=== PATIENT | male | born 1975 | race Hispanic/Latino ===

== ENCOUNTER 2016-03-16 13:56 | Emergency (ER) ==
--- NOTE | 2016-03-16 15:37 | Diag Imaging Result Document ---
PROCEDURE NAME: CHEST-2 VIEWS - 03/16/2016 CHEST, TWO VIEWS: INDICATION: Cough. COMPARISON: No comparison studies. FINDINGS: There is cardiomegaly. The pulmonary vasculature is not congested. No infiltrate, effusion, or pneumothorax is identified. IMPRESSION: Cardiomegaly.
[2016-03-16 15:53] LABS: MANUAL DIFF NEEDED? NO
[2016-03-16 15:56] LABS: BASO% 0.5 % (0.0-0.8); EOS# 0.12 X1000 (0.0-0.7); EOS% 1.9 % (0.0-10.0); HEMATOCRIT 46.6 % (42.0-52.0); HEMOGLOBIN 16.6 g/dL (14.0-18.0); IMM GRAN# 0.01 X1000 (0.0-0.04); IMM GRAN% 0.2 % (0.0-0.5); LYMPH# 2.16 X1000 (1.2-3.4); LYMPH% 34.3 % (20.5-51.1); MCH 30.9 PG (27-31); MCHC 35.6 g/dL (33-37); MCV 86.6 FL (81-99); MONO# 0.47 X1000 (0.11-0.59); MONO% 7.5 % (1.7-9.3); MPV 10.9 FL (7.4-10.4); NEUT% 55.6 % (42.2-75.2); PLT 227 X1000 (130-400); RBC 5.38 XMIL (4.7-6.1)
--- NOTE | 2016-03-16 15:56 | PROVIDER DOCUMENTATION ---
HPI-General Adult - General Chief Complaint: Flu Symptoms Stated Complaint: FLU LIKE SX Time Seen by Provider: 03/16/16 15:01 Source: patient Allergies/Adverse Reactions: Patient Allergies Allergy/AdvReac Type Severity Reaction Status Date / Time No Known Allergies Allergy Verified 11/12/14 03:06 - History of Present Illness -Gen Adult Nature of Presenting Problems: Pt is 40 y/o M presents to the ED with F, body aches, and cough. Pt states symptoms started 2 days ago. Pt states cough up sputum. Pt states having sick contact at work. Pt denies smoking. Location of Pain/Injury: reports: generalized Pain Radiation: reports: no radiation Quality of Pain: reports: aching Severity: reports: mild Onset/Duration: reports: 2 days ago Timing: reports: still present, intermittent Context/Activities at Onset: reports: light activity Modifying Factors: improves with: nothing Associated Symptoms: reports: cough, fever/chills (F), muscle aches, weakness. denies: anxiety, arm pain, back/neck pain, chest pain, diarrhea, headaches, loss of appetite, sinus congestion/drainage, shortness of breath, vomiting Similar Symptoms Previously?: Yes Recently seen or treated by another doctor?: No Review of Systems - Adult - REVIEW OF SYSTEMS - ADULT Constitutional: reports: fever. denies: chills Eyes: denies: blurred vision, double vision Ears, Nose, Mouth & Throat: denies: ear pain, nose pain, throat pain Cardiovascular: denies: chest pain, heart murmur, irregular heart rate Respiratory: reports: cough. denies: shortness of breath, wheezing Gastrointestinal: denies: abdominal pain, diarrhea, nausea, vomiting Genitourinary: denies: dysuria, hematuria Musculoskeletal: reports: muscle aches (generalized). denies: bone pain, joint pain, neck pain Integumentary: denies: hives, itching Neurological: denies: dizziness/vertigo, headache/migraines Psychiatric: reports: no symptoms reported Endocrine: reports: no symptoms reported Hematologic/Lymphatic: reports: no symptoms reported Allergic/Immunologic: reports: no symptoms reported All Other Systems: Reviewed and Negative Past History - Adult - PAST MEDICAL HISTORY-ADULT Review of Records: reports: Nursing Assessment Review, Medications Reviewed, Social history reviewed & non-contributory. Major Childhood Illnesses: reports: denies history Cardiovascular: reports: HTN Respiratory: reports: denies history Gastrointestinal: reports: denies history Obstetrical/Gynecological: reports: denies history Genitourinary: reports: denies history Musculoskeletal: reports: denies history Neurological: reports: denies history Endocrine/Immune: reports: denies history Other Conditions: reports: denies history - PRIOR SURGERIES/PROCEDURES Surgical/Procedure History: reports: reviewed, not pertinent - IMMUNIZATION STATUS Childhood Immunizations: See Nurse Assessment Flu Vaccine: See Nurse Assessment - FAMILY HISTORY Family History: reviewed, not pertinent - SOCIAL HISTORY Smoking: denies Substance Use: denies Alcohol Use Frequency: never Living Situation: family Physical Exam-General - PHYSICAL EXAM-ADULT Initial Vital Signs Reviewed: Yes - CONSTITUTIONAL General Appearance: appears well, alert, no apparent distress - EYES Eyes: PERRL/EOMI, pink conjunctivae - HEAD, EARS, NOSE, MOUTH & THROAT HENMT: normocephalic/atraumatic, moist mucous membranes, normal ENT inspection - NECK Neck: non-tender, full range of motion, normal inspection - RESPIRATORY Respiratory: chest non-tender, lungs clear, normal breath sounds - CARDIOVASCULAR Cardiovascular: normal peripheral pulses, regular rate, rhythm, no edema - GASTROINTESTINAL (ABDOMEN) Abdominal Exam: normal bowel sounds, non tender, soft - LYMPHATIC Lymphatic: no adenopathy - MUSCULOSKELETAL Back Exam: normal inspection, no CVA tenderness, no vertebral tenderness Extremity: normal range of motion, non-tender, normal gait - SKIN Integumentary: normal color, normal turgor, warm/dry - NEUROLOGIC Neurologic: clinical pathologist II-XII nml as tested, grossly normal, no motor/sensory deficits - PSYCHIATRIC Psych/Mental Status: normal mood/affect, normal thought content, normal thought process, oriented x 3 Progress - PLAN OF CARE/RESULTS Progress/Plan/Lab Results: Laboratory Tests 03/16/16 03/16/16 14:20 15:37 WBC 6.30 RBC 5.38 Hgb 16.6 Hct 46.6 MCV 86.6 MCH 30.9 MCHC 35.6 RDW Std Deviation 12.5 Plt Count 227 MPV 10.9 H Immature Gran % (Auto) 0.2 Neut % (Auto) 55.6 Lymph % (Auto) 34.3 [place] % (Auto) 7.5 Eos % (Auto) 1.9 Baso % (Auto) 0.5 Immature Gran # (Auto) 0.01 Neut # (Auto) 3.51 Lymph # (Auto) 2.16 [place] # (Auto) 0.47 Eos # (Auto) 0.12 Baso # (Auto) 0.03 Influenza A (Rapid) NEGATIVE Influenza B (Rapid) NEGATIVE Orders Category Date Time Status CHEST-2 VIEWS [RAD] Stat Exams 03/16/16 15:01 Draft CBC WITH DIFF [HEME] Stat Lab 03/16/16 15:37 Completed Flu [INFLUENZA SCREEN PL] Stat Lab 03/16/16 14:20 Completed Vital Signs - 24 hr 03/16/16 14:14 Temperature 98.3 F Pulse Rate 77 Respiratory 18 Rate Blood Pressure 164/90 O2 Sat by Pulse 98 Oximetry - XRAY 1 XRAY: Bilateral XRAY Study: Chest Impression: Normal XRAY Interpretation: cardiomegaly Departure - Departure Time of Disposition Order: 16:22 DIAGNOSIS: Viral syndrome Disposition: HOME 01 Certified Medical Emergency: Emergent Condition: Stable Additional Instructions: ED Follow Up Instructions: You have been treated by a care provider in the Emergency Department. These instructions are being provided to you so you can have an understanding of how to care for yourself upon discharge. Upon discharge from the Emergency Department, you are responsible for making arrangements for follow-up care by a physician of your choice. Take all prescribed medications as directed. Return to the Emergency Department immediately for any new or worsening symptoms. You may call the Physician Referral phone number at [phone] to obtain a list of Physicians who are taking new patients. Referrals: None,PCP [Primary Care Provider] - Attestation - Scribe Verification/Attestation Scribe:: Lauren Aguilar Acting as Scribe for:: Rodri Villa Scribe documention review:: This chart was documented by a scribe and accurately reflects the service the provider performed and the decisions made by the provider.
[2016-03-16 16:41] VITALS: BP 128/66
== END 2016-03-16 16:39 | disposition home or self-care (01) ==
LOC: P.ED 13:56
DX: B34.9 Viral infection, unspecified (principal); R50.9 Fever, unspecified; M79.1 Myalgia; R05 Cough; R09.3 Abnormal sputum; R53.1 Weakness; I10 Essential (primary) hypertension
CPT/HCPCS: 71020; 85025; 87804; 99283

== ENCOUNTER 2016-03-21 11:43 | Emergency (ER) ==
[2016-03-21 11:55] VITALS: BP 158/89
[2016-03-21 12:02] LABS: MANUAL DIFF NEEDED? NO
[2016-03-21 12:24] LABS: INR 0.99 (0.86-1.15); PROTIME 13.4 Seconds (12.1-15.5)
[2016-03-21 12:25] LABS: PTT PL 29.8 Seconds (22.6-43.9)
[2016-03-21 12:34] LABS: AGAP 9; ALBUMIN 4.4 g/dL (3.5-5.0); ALKALINE PHOSPHATASE 73 U/L (32-122); BUN 14 mg/dL (8-22); CALCIUM 9.1 mg/dL (8.8-10.2); CHLORIDE 100 mmol/L (98-107); CK PROFILE 109 U/L (24-204); COSMO 273; GOT 21 U/L (10-34); GPT 21 U/L (10-44); POTASSIUM 3.9 mmol/L (3.5-5.1); SODIUM 136 mmol/L (136-145); TCO2 27 mmol/L (25-35); TOTAL PROTEIN 7.4 g/dL (6.3-8.3)
--- NOTE | 2016-03-21 13:06 | Diag Imaging Result Document ---
PROCEDURE NAME: CHEST-2 VIEWS - 03/21/2016 TWO VIEWS OF THE CHEST: FINDINGS: Compared to 03/16/2016, there has been no significant change in the appearance of the chest. IMPRESSION: No acute disease.
--- NOTE | 2016-03-21 13:16 | EKG Report ---
Test Performed on : 03/21/2016 12:38:41 PM Test Reason : CHEST PAIN Blood Pressure : / mmHG Vent. Rate : 074 BPM Atrial Rate : 074 BPM P-R Int : 120 ms QRS Dur : 084 ms QT Int : 382 ms P-R-T Axes : 028 048 -23 degrees QTc Int : 424 ms Sinus rhythm. with occasional premature ventricular complexes. T wave abnormality, consider inferior ischemia Abnormal ECG No previous ECGs available Unconfirmed Result
[2016-03-21 13:36] LABS: BASO% 0.5 % (0.0-0.8); EOS# 0.13 X1000 (0.0-0.7); EOS% 2.1 % (0.0-10.0); HEMATOCRIT 46.2 % (42.0-52.0); HEMOGLOBIN 16.9 g/dL (14.0-18.0); LYMPH# 2.35 X1000 (1.2-3.4); LYMPH% 38.5 % (20.5-51.1); MCH 31.3 PG (27-31); MCHC 36.6 g/dL (33-37); MCV 85.6 FL (81-99); MONO# 0.51 X1000 (0.11-0.59); MONO% 8.3 % (1.7-9.3); MPV 10.9 FL (7.4-10.4); NEUT% 50.6 % (42.2-75.2); PLT 208 X1000 (130-400)
--- NOTE | 2016-03-21 13:42 | PROVIDER DOCUMENTATION ---
Addendum entered and electronically signed by Marcia Sun MD 03/22/16 08:12: Additional Progress - ADDITIONAL PLAN OF CARE/RESULTS Additional Progress/Plan/Lab Results: Pt was seen at [facility] on 03/16/16, and was diagnosed viral syndrome, and the CXR showed enlarged heart per Radiology. Return to ER complaining that he felt L side CP, SOB and generalized weakness. On PE, he had a friction rub type of murmur at L anterior chest. My clinical impression was that Myocarditis/ Pericarditis needed to be ruled out. Pt looks in no distress with normal vital signs. I asked pt whether he was referred to any doctor or any Elementary [employer] Science Teacher after his 03/16/16 visit, because I believe the best way to handle this is an Echo [facility] through PCP or a Elementary [employer] Science Teacher, but Echo is not an option for ER. I expressed my concern and I told pt that I will do a thorough check up for him, including a cardiac/PNA work up and a chest CT - this is the best thing I can come up. If the CT scan show pericardiac effusion, I will admit him, if no effusion, I will refer him to see a Elementary School Science Teacher. I was concerned for his situation. I even told him that I had a case of Myocarditis recently, because the patient waited too long and he was in a very bad shape when I saw him at ER, he went to renal failure/liver failure and his EF was only 10%. I ordered the CT scan and a full work up. Pt ELOPED. I could not understand the reason for him to do so. I was concerned and I tried to call him after my shift, but I could not reach him by calling him 3 times, but I did leave him a message and instructed him to RTER immediately to complete his work up. Right before I am completing this note, [facility] Sof[facility] also tried to reach him for his Cardiomegaly reported by Radiology because this is a discrepancy and he needs to be informed for follow up and RTED. Original Note: HPI-Rash/Wound/ReCheck - General Chief Complaint: Return/Recheck Stated Complaint: CHEST PAINS Time Seen by Provider: 03/21/16 13:17 Source: patient Allergies/Adverse Reactions: Allergies Allergy/AdvReac Type Severity Reaction Status Date / Time No Known Allergies Allergy Verified 11/12/14 03:06 - History of Present Illness-Dermatology Nature of Presenting Problem: Was seen on 03/16/16 where he reports being diagnosed with enlarged heart and virus and reports was given Robitussin and some antibiotics and reports still having chest pain that radiates into back with sob and wants to be rechecked. Location: reports: chest Quality: reports: painful Severity: reports: moderate Onset/Duration: reports: 5 days ago Timing: reports: still present Identifiable cause?: No Similar Symptoms Previously?: Yes Recently seen or treated by another doctor?: Yes Review of Systems - Adult - REVIEW OF SYSTEMS - ADULT Constitutional: denies: chills, fever, fatique Eyes: reports: no symptoms reported Ears, Nose, Mouth & Throat: reports: no symptoms reported Cardiovascular: reports: chest pain. denies: irregular heart rate, orthopnea, syncope Respiratory: reports: shortness of breath. denies: cough, pleurisy, wheezing Gastrointestinal: denies: abdominal pain, diarrhea, nausea, vomiting Genitourinary: reports: no symptoms reported Musculoskeletal: reports: no symptoms reported Integumentary: reports: no symptoms reported Neurological: reports: no symptoms reported Psychiatric: reports: no symptoms reported Endocrine: reports: no symptoms reported Hematologic/Lymphatic: reports: no symptoms reported Allergic/Immunologic: reports: no symptoms reported All Other Systems: Reviewed and Negative Past History - Adult - PAST MEDICAL HISTORY-ADULT Review of Records: reports: Nursing Assessment Review Major Childhood Illnesses: reports: denies history Cardiovascular: reports: HTN Respiratory: reports: denies history Gastrointestinal: reports: denies history Obstetrical/Gynecological: reports: denies history Genitourinary: reports: denies history Musculoskeletal: reports: denies history Neurological: reports: denies history Endocrine/Immune: reports: denies history Other Conditions: reports: denies history - PRIOR SURGERIES/PROCEDURES Surgical/Procedure History: reports: reviewed, not pertinent, orthopedic ( extremity) (left shoulder) - IMMUNIZATION STATUS Childhood Immunizations: See Nurse Assessment Flu Vaccine: See Nurse Assessment - FAMILY HISTORY Family History: reviewed, not pertinent - SOCIAL HISTORY Smoking: denies Substance Use: none/never Physical Exam-General - PHYSICAL EXAM-ADULT Initial Vital Signs Reviewed: Yes - CONSTITUTIONAL General Appearance: appears well, alert, no apparent distress - EYES Eyes: PERRL/EOMI, pink conjunctivae - HEAD, EARS, NOSE, MOUTH & THROAT HENMT: normocephalic/atraumatic, moist mucous membranes, normal ENT inspection - NECK Neck: non-tender, full range of motion, normal inspection - RESPIRATORY Respiratory: chest non-tender, lungs clear, normal breath sounds, no pleuratic chest pain, no respiratory distress, no accessory muscle use - CARDIOVASCULAR Cardiovascular: normal peripheral pulses, regular rate, rhythm, no edema, no gallop, no JVD, systolic murmur - GASTROINTESTINAL (ABDOMEN) Abdominal Exam: normal bowel sounds, non tender, soft - LYMPHATIC Lymphatic: no adenopathy - MUSCULOSKELETAL Back Exam: normal inspection, no CVA tenderness, no vertebral tenderness Extremity: normal range of motion, non-tender, normal gait - SKIN Integumentary: normal color, normal turgor, warm/dry - NEUROLOGIC Neurologic: grossly normal, no motor/sensory deficits - PSYCHIATRIC Psych/Mental Status: normal mood/affect, normal thought content, normal thought process, oriented x 3 Progress - PLAN OF CARE/RESULTS Progress/Plan/Lab Results: Orders Category Date Time Status Saline Loc NOW Care 03/21/16 13:16 Active ANGIOGRAM/PULMONARY ARTERIES [CT] Stat Exams 03/21/16 13:16 Ordered CHEST-1 VIEW [RAD] Stat Exams 03/21/16 13:15 Ordered CHEST-2 VIEWS [RAD] Stat Exams 03/21/16 11:56 Draft C REACTIVE PROT QUANT [CHEM] Stat Lab 03/21/16 13:15 Ordered CBC WITH ELECTRONIC DIFF [HEME] Stat Lab 03/21/16 11:58 Completed CK PROFILE [SP CHEM] Stat Lab 03/21/16 11:58 Completed COMPREHENSIVE METABOLIC PANEL [CHEM] Stat Lab 03/21/16 11:58 Completed MAGNESIUM [CHEM] Stat Lab 03/21/16 11:58 Completed PRO B-NATRIURETIC PEPTIDE Stat Lab 03/21/16 11:58 Completed PRO B-NATRIURETIC PEPTIDE Stat Lab 03/21/16 13:[address]IME WITH INR [address] [COAG] Stat Lab 03/21/16 11:[address] [COAG] Stat Lab 03/21/16 11:58 Completed TROPONIN T Stat Lab 03/21/16 11:58 Completed EKG [EKG] Stat Ther 03/21/16 11:56 Draft Vital Signs - 24 hr 03/21/16 11:52 Temperature 98.6 F Pulse Rate 81 Respiratory 18 Rate Blood Pressure 158/89 O2 Sat by Pulse 98 Oximetry - EKG 1 Time of EKG reading by physician:: 12:38 EKG Read and Signed by:: Marcia Sun EKG Interpretation (*Must complete 3 of following elements*): Abnormal (T wave abnormality consider inferior ischemia) Rate: 74 Rhythm: sinus with occ lien ventricular complexes [place]: normal QRS: normal - XRAY 1 XRAY: Bilateral XRAY Study: Chest Comparison with other Films: no changes (from 03/16/16) XRAY Interpretation: nad Departure - Departure Time of Disposition Order: 13:54 DIAGNOSIS: Viral syndrome Chest pain Qualifiers: Chest pain type: unspecified Qualified Code(s): R07.9 - Chest pain, unspecified Disposition: [place] [id number] Certified Medical Emergency: Emergent Condition: Stable Attestation - Scribe Verification/Attestation Scribe:: Stefany Nguyen Acting as Scribe for:: Marcia Sun Scribe documention review:: This chart was documented by a scribe and accurately reflects the service the provider performed and the decisions made by the provider.
== END 2016-03-21 13:45 | disposition left against medical advice (07) ==
LOC: P.ED 11:43
DX: B34.9 Viral infection, unspecified (principal); R07.89 Other chest pain; R94.31 Abnormal electrocardiogram [ECG] [EKG]; R06.02 Shortness of breath; R53.1 Weakness; I10 Essential (primary) hypertension
CPT/HCPCS: 36415; 71020; 80053; 82550; 83735; 83880; 84484; 85025; 85610; 85730; 86140; 93005; 99283

== ENCOUNTER 2016-03-22 11:57 | Emergency (ER) ==
[2016-03-22] MEDS ORDERED: NORCO-7.5 PO ONE (12:23)
--- NOTE | 2016-03-22 12:30 | PROVIDER DOCUMENTATION ---
HPI-Rash/Wound/ReCheck - General Source: patient, family - History of Present Illness-Dermatology Location: reports: other (mid back) Onset/Duration: reports: 1 week ago Timing: reports: still present Locality of Occurance: Home Similar Symptoms Previously?: Yes Recently seen or treated by another doctor?: Yes <Stefany Nguyen - Last Filed: 03/22/16 12:25> <Judy Sundixon Matthew - Last Filed: 03/22/16 14:00> - General Chief Complaint: Return/Recheck Stated Complaint: RECHECK ON CHEST Time Seen by Provider: 03/22/16 12:15 Allergies/Adverse Reactions: Allergies Allergy/AdvReac Type Severity Reaction Status Date / Time No Known Allergies Allergy Verified 03/22/16 12:13 - History of Present Illness-Dermatology Nature of Presenting Problem: Pt was seen on 03/16/16 diagnosed with viral syndrome and Cardiomegaly given medication and sent home. Pt returned on 03/21/16 for recheck of Cardiomegaly and after Physcian evaluation eloped because he thought MD said he would have to see Editor to get CT done so he left. After communication error cleared up pt returned to ER today for recheck of Chest pt would like a CT of the chest and a conveyor feeder referral. Pt reports he has had mid back discomfort all night and continues this morning worsening with inspiration. ( Stefany Nguyen) Review of Systems - Adult - REVIEW OF SYSTEMS - ADULT Constitutional: denies: chills, fever, fatique Eyes: reports: no symptoms reported Ears, Nose, Mouth & Throat: reports: no symptoms reported Cardiovascular: reports: see HPI. denies: edema, heart murmur, irregular heart rate Respiratory: reports: pleurisy. denies: cough, wheezing Gastrointestinal: denies: abdominal pain, diarrhea, nausea, vomiting Genitourinary: reports: no symptoms reported Musculoskeletal: reports: back pain. denies: joint pain, joint swelling, neck pain Integumentary: reports: no symptoms reported Neurological: reports: no symptoms reported Psychiatric: reports: no symptoms reported Endocrine: reports: no symptoms reported Hematologic/Lymphatic: reports: no symptoms reported Allergic/Immunologic: reports: no symptoms reported All Other Systems: Reviewed and Negative <Stefany Nguyen - Last Filed: 03/22/16 12:25> Past History - Adult - PAST MEDICAL HISTORY-ADULT Review of Records: reports: Nursing Assessment Review Major Childhood Illnesses: reports: denies history Cardiovascular: reports: HTN, murmur Respiratory: reports: denies history Gastrointestinal: reports: denies history Obstetrical/Gynecological: reports: denies history Genitourinary: reports: denies history Musculoskeletal: reports: denies history Neurological: reports: denies history Endocrine/Immune: reports: denies history Other Conditions: reports: denies history - PRIOR SURGERIES/PROCEDURES Surgical/Procedure History: reports: reviewed, not pertinent, orthopedic ( extremity) (left shoulder) - IMMUNIZATION STATUS Childhood Immunizations: See Nurse Assessment Flu Vaccine: See Nurse Assessment - FAMILY HISTORY Family History: reviewed, not pertinent - SOCIAL HISTORY Smoking: denies Substance Use: none/never <Stefany Nguyen - Last Filed: 03/22/16 12:25> Physical Exam-General - PHYSICAL EXAM-ADULT Initial Vital Signs Reviewed: Yes - CONSTITUTIONAL General Appearance: appears well, alert, no apparent distress - EYES Eyes: PERRL/EOMI, pink conjunctivae - HEAD, EARS, NOSE, MOUTH & THROAT HENMT: normocephalic/atraumatic, moist mucous membranes, normal ENT inspection, TMs normal, pharynx normal - NECK Neck: non-tender, full range of motion, supple, normal inspection - RESPIRATORY Respiratory: chest non-tender, lungs clear, normal breath sounds - CARDIOVASCULAR Cardiovascular: normal peripheral pulses, regular rate, rhythm, systolic murmur (possible early diastolic), friction rub - GASTROINTESTINAL (ABDOMEN) Abdominal Exam: normal bowel sounds, non tender, soft, no organomegaly, no pulsatile mass - LYMPHATIC Lymphatic: no adenopathy - MUSCULOSKELETAL Back Exam: normal inspection, no CVA tenderness, no vertebral tenderness Extremity: normal range of motion, non-tender, normal gait - SKIN Integumentary: normal color, normal turgor, warm/dry - NEUROLOGIC Neurologic: grossly normal, no motor/sensory deficits - PSYCHIATRIC Psych/Mental Status: normal mood/affect, normal thought content, normal thought process, oriented x 3 <Stefany Nguyen - Last Filed: 03/22/16 12:25> Progress <Stefany Nguyen - Last Filed: 03/22/16 12:25> - CT/MRI 1 CT Study: Thorax (No PE, mild cardiomegaly, no PNA, no pneumothorax) <Marcia Sun X - Last Filed: 03/22/16 14:00> - PLAN OF CARE/RESULTS Progress/Plan/Lab Results: Orders Category Date Time Status IV [Saline Loc] NOW Care 03/22/16 12:23 Active ANGIOGRAM/PULMONARY ARTERIES [CT] Stat Exams 03/22/16 12:22 Ordered COMPREHENSIVE METABOLIC PANEL [CHEM] Stat Lab 03/22/16 12:11 Ordered D-DIMER PL [COAG] Stat Lab 03/22/16 12:22 Ordered PRO B-NATRIURETIC PEPTIDE Stat Lab 03/22/16 12:22 Ordered TROPONIN T Stat Lab 03/22/16 12:22 Ordered Hydrocodone/APAP 7.5 mg/325 mg [Spencer-7.5] Med 03/22/16 12:23 Discontinued 1 each PO NOW ONE Vital Signs - 24 hr 03/22/16 12:07 Temperature 99.4 F Pulse Rate 85 Respiratory 16 Rate Blood Pressure 148/92 O2 Sat by Pulse 98 Oximetry (Stefany Nguyen) Laboratory Results - last 24 hr 03/22/16 03/22/16 03/22/16 12:30 12:30 12:30 D-Dimer Sodium 139 Potassium 4.2 Chloride 103 Carbon Dioxide 26 Anion Gap 10 BUN 14 Creatinine 0.8 Estimated GFR/1.73 m2 > 60 BUN/Creatinine Ratio 18 Glucose 128 H Calculated Osmolality 280 Calcium 9.5 Total Bilirubin 0.80 AST 21 ALT 21 Alkaline Phosphatase 73 Troponin T < 0.010 Anp-J-Bommbwnurqg Pept 98 H Total Protein 7.5 Albumin 4.7 Globulin 3.0 Albumin/Globulin Ratio 2.0 03/22/16 12:30 D-Dimer < 0.22 L Sodium Potassium Chloride Carbon Dioxide Anion Gap BUN Creatinine Estimated GFR/1.73 m2 BUN/Creatinine Ratio Glucose Calculated Osmolality Calcium Total Bilirubin AST ALT Alkaline Phosphatase Troponin T Qfa-Y-Fbnyzgnycrj Pept Total Protein Albumin Globulin Albumin/Globulin Ratio Vital Signs Temp Pulse Resp BP Pulse Ox 03/22/16 12:07 99.4 F 85 16 148/92 98 No Known Allergies Allergy (Verified 03/22/16 12:13) No Home Medications 03/22/16 Laboratory 03/22/16 03/22/16 03/22/16 12:30 12:30 12:30 D-Dimer < 0.22 L Sodium Potassium Chloride Carbon Dioxide Anion Gap BUN Creatinine Estimated GFR/1.73 m2 BUN/Creatinine Ratio Glucose Calculated Osmolality Calcium Total Bilirubin AST ALT Alkaline Phosphatase Troponin T < 0.010 Zhh-Q-Owxcqmrsndc Pept 98 H Total Protein Albumin Globulin Albumin/Globulin Ratio 03/22/16 12:30 D-Dimer Sodium 139 Potassium 4.2 Chloride 103 Carbon Dioxide 26 Anion Gap 10 BUN 14 Creatinine 0.8 Estimated GFR/1.73 m2 > 60 BUN/Creatinine Ratio 18 Glucose 128 H Calculated Osmolality 280 Calcium 9.5 Total Bilirubin 0.80 AST 21 ALT 21 Alkaline Phosphatase 73 Troponin T Iiv-D-Zyekmtlfyig Pept Total Protein 7.5 Albumin 4.7 Globulin 3.0 Albumin/Globulin Ratio 2.0 Orders Category Date Time Status IV [Saline Loc] NOW Care 03/22/16 12:23 Active ANGIOGRAM/PULMONARY ARTERIES [CT] Stat Exams 03/22/16 12:22 Taken COMPREHENSIVE METABOLIC PANEL [CHEM] Stat Lab 03/22/16 12:[address] D-D[address]ER [address] [COAG] Stat Lab 03/22/16 12:30 Completed PRO B-NATRIURETIC PEPTIDE Stat Lab 03/22/16 12:30 Completed TROPONIN T Stat Lab 03/22/16 12:30 Completed Hydrocodone/APAP 7.5 mg/325 mg [Spencer-7.5] Med 03/22/16 12:23 Discontinued 1 each PO NOW ONE (Marcia Sun) Departure <Stefany Nguyen - Last Filed: 03/22/16 12:25> - Departure Time of Disposition Order: 13:57 Certified Medical Emergency: Emergent <Marcia Sun - Last Filed: 03/22/16 14:00> - Departure DIAGNOSIS: Acute viral syndrome, Cardiomegaly, Atypical chest pain Disposition: HOME 01 Condition: Stable Additional Instructions: Follow up with Cardiology [facility] for further management. Return to ER if your symptoms worsen. Prescriptions: Naproxen [Naprosyn] 500 mg PO BID #20 tablet Referrals: None,PCP [Primary Care Provider] - Mark Adam MD [STAFF PHYSICIAN] - Attestation - Scribe Verification/Attestation Scribe:: Stefany Nguyen Acting as Scribe for:: Marcia Sun Scribe documention review:: This chart was documented by a scribe and accurately reflects the service the provider performed and the decisions made by the provider. <Nguyen,Estoria - Last Filed: 03/22/16 12:25> Physician Attestation
[2016-03-22 13:03] LABS: AGAP 10; ALBUMIN 4.7 g/dL (3.5-5.0); ALKALINE PHOSPHATASE 73 U/L (32-122); BUN 14 mg/dL (8-22); CALCIUM 9.5 mg/dL (8.8-10.2); CHLORIDE 103 mmol/L (98-107); COSMO 280; GOT 21 U/L (10-34); GPT 21 U/L (10-44); POTASSIUM 4.2 mmol/L (3.5-5.1); SODIUM 139 mmol/L (136-145); TCO2 26 mmol/L (25-35); TOTAL PROTEIN 7.5 g/dL (6.3-8.3)
--- NOTE | 2016-03-22 14:04 | Diag Imaging Result Document ---
PROCEDURE NAME: ANGIOGRAM/PULMONARY ARTERIES - 03/22/2016 CT ANGIOGRAM PULMONARY ARTERIES WITH CONTRAST: Exam performed with intravenous contrast. A dose- reduction protocol was used. Axial and reformatted coronal MIP images are obtained. No comparison exam. FINDINGS: There are no filling defects identified in the pulmonary arteries. There is no indication of aortic dissection. There is mild cardiomegaly. The lungs appear essentially clear. There is no pleural effusion or pneumothorax identified. There are no abnormally enlarged mediastinal lymph nodes identified. There is apparent fatty infiltration of the liver noted. IMPRESSION: 1. No evidence of pulmonary embolism. 2. Mild cardiomegaly. No other evidence of acute disease in the thorax. 3. Apparent fatty infiltration of liver noted.
[2016-03-22 14:13] VITALS: BP 138/90
== END 2016-03-22 14:14 | disposition home or self-care (01) ==
LOC: P.ED 11:57
DX: B34.9 Viral infection, unspecified (principal); I51.7 Cardiomegaly; R07.89 Other chest pain; M54.6 Pain in thoracic spine; R09.1 Pleurisy; R01.1 Cardiac murmur, unspecified; I10 Essential (primary) hypertension
CPT/HCPCS: 36415; 71275; 80053; 83880; 84484; 85379; Q9967